=== PATIENT | male | born 1940 | race Caucasian/White ===

== ENCOUNTER 2019-07-26 06:45 | Inpatient (IN) | payer MEDICARE, OTHER ==
[2019-07-26] MEDS ORDERED: Aplisol ID ONE (16:00)
[2019-07-26] MEDS: ELIQUIS 2.5 MG TABLET PO SCH (21:45)
[2019-07-26] MEDS: Colace 100 MG PO SCH (21:45)
[2019-07-26] MEDS: Vibramycin 100 MG PO SCH (21:45)
[2019-07-26] MEDS: Zocor 10MG PO SCH (21:46)
[2019-07-27 05:22] LABS: Hematocrit 33.5 % (42-50); Hemoglobin 10.6 gm/dl (12.5-18.0); Mean Cell Volume 100.6 fl (78-100); Mean Corpuscular Hemoglobin 31.8 pg (26-32); Mean Corpuscular Hgb Concent. 31.6 g/dl (32-36); Mean Platelet Volume 11.8 fl (7.5-11.0); Platelet Count 189 K/mm3 (150-450); Red Blood Count 3.33 M/mm3 (4.1-5.6); Red Cell Distribution Width 14.3 % (11.5-14.0); White Blood Count 5.9 K/mm3 (4.0-10.5)
[2019-07-27 05:23] LABS: ALBUMIN 3.2 g/dL (3.5-5.0); ALKALINE PHOSPHATASE 162 U/L (38-126); ANION GAP 8.6 MEQ/L (5-15); BLOOD UREA NITROGEN 19 mg/dL (9-20); CHLORIDE 99 mmol/L (98-107); Calcium 9.6 mg/dL (8.4-10.2); Carbon Dioxide 35 mmol/L (22-30); Creatinine 1 0.65 mg/dL (0.66-1.25); Glucose 109 mg/dL (74-106); Potassium 4.8 mmol/L (3.5-5.1); SGOT/AST 33 U/L (17-59); SGPT/ALT 33 U/L (0-50); SODIUM 138 mmol/L (137-145); Total Protein 6.8 g/dL (6.3-8.2)
[2019-07-27] MEDS ORDERED: NON-FORMULARY ITEM (Losartan Potassium [Losartan Potassium] 25 MG) PO SCH (10:00)
[2019-07-27] MEDS ORDERED: NON-FORMULARY ITEM (Cholecalciferol (Vitamin D3) [Vitamin D3] 2,000 UNIT) PO SCH (10:00)
[2019-07-27] MEDS ORDERED: POTASSIUM CHLORIDE 10 MEQ PO SCH (10:00)
[2019-07-27] MEDS: Vibramycin 100 MG PO SCH ×2 (10:01→20:44)
[2019-07-27] MEDS: LASIX 20 MG PO SCH (10:01)
[2019-07-27] MEDS: Klor Con 10 MEQ PO SCH (10:01)
[2019-07-27] MEDS: Colace 100 MG PO SCH ×2 (10:01→20:44)
[2019-07-27] MEDS: VITAMIN D PO SCH (10:01)
[2019-07-27] MEDS: ELIQUIS 2.5 MG TABLET PO SCH ×2 (10:01→20:44)
[2019-07-27] MEDS: Cozaar 50 MG PO SCH (10:01)
--- NOTE | 2019-07-27 17:31 | PCM.HP ---
History of Present Illness - Chief Complaint Chief Complaint: DECONDITIONING R/T FALL, RHABDOMYOLYSIS History of Present Illness: is a 79 year old male pt of Dr. Jaimes with osteomyelitis of the spine, HTN , CAD (with CABG), afib, constipation, and low Vitamin D who was recently discharged from [facility] for a 6 day acute care stay and admitted at [facility] for a swing bed stay/rehab. He had fallen at home (denies LOC) and laid on the floor for about 14 hours; was treated for rhabdomyolysis. Pt's only current complaint is back pain, which is chronic since his infection began. He is on doxycycline BID, he states Dr. Jaimes told him he may be on this for life. - Review of Systems Cardiac: Edema (LLE edema, chronic) Musculoskeletal: Back Pain, Fall, Injury, Joint Pain (R shoulder since the fall ; had surgery 2010. Also had L knee surgery 2010.) Medications & Allergies Home Medications: Home Medication List Doxycycline Hyclate 100 mg PO BID 06/21/14 [History Confirmed 07/26/19] Potassium Chloride [Klor-Con M20] 10 meq PO DAILY 06/21/14 [History Confirmed ] Simvastatin 10 mg [Zocor 10MG] 10 mg PO QPM 05/09/19 [History Confirmed ] Apixaban [Eliquis] 5 mg PO BID 07/26/19 [History Confirmed 07/26/19] Cholecalciferol (Vitamin D3) [Vitamin D3] 2,000 unit PO DAILY 07/26/19 [History Confirmed 07/26/19] Docusate Sodium [Colace] 100 mg PO BID 07/26/19 [History Confirmed 07/26/19] Furosemide 20 mg [Lasix 20 mg] 20 mg PO DAILY 07/26/19 [History Confirmed 07/26/19] Losartan Potassium 25 mg PO DAILY 07/26/19 [History Confirmed 07/26/19] Allergies/Adverse Reactions: Allergies Allergy/AdvReac Type Severity Reaction Status Date / Time lisinopril Allergy Mild Verified 05/09/19 09:10 rosuvastatin [From Crestor] Allergy Mild Verified 05/09/19 09:10 - Past Medical History Past Medical History: Yes Neurological History: No Pertinent History ENT History: No Pertinent History Cardiac History: Arrhythmia, Coronary Artery Disease, High Cholesterol, Hypertension Respiratory History: No Pertinent History Endocrine Medical History: No Pertinent History Musculoskelatal History: Arthritis GI Medical History: GERD History: No Pertinent History Pyscho-Social History: No Pertinent History Male Reproductive Disorders: No Pertinent History Comment: foot ulcers to both feet - Past Surgical History Past Surgical History: Yes Neuro Surgical History: No Pertinent History Cardiac History: CABG Respiratory Surgery: No Pertinent History GI Surgical History: No Pertinent History Genitourinary Surgical Hx: No Pertinent History Musculskeletal Surgical Hx: Orthopedic Surgery, Joint Replacement Male Surgical History: No Pertinent History Other Surgical History: LEFT FOOT, LEFT KNEE, LEFT TOE AMPUTATION, LEFT ROTATOR CUF, open heart 2000--quadruple bypass, bilateral knee replace, right shoulder replace that didn't take, bilateral feet - Social History Smoking Status: Never smoker Exposure to second hand smoke: No Alcohol: None Drug Use: none - Physical Exam Vital Signs: Vital Signs - 24 hr Temp Pulse Resp BP Pulse Ox 07/27/19 07:33 140/58 07/27/19 07:08 98 F 66 20 195/86 94 L 07/26/19 19:58 99 F 71 20 171/76 95 General Appearance: no apparent distress, alert (eating supper while in bed) Neurologic Exam: oriented x 3, cooperative Eye Exam: eyes nml inspection Ears, Nose, Throat Exam: moist mucous membranes Neck Exam: normal inspection Respiratory Exam: normal breath sounds, lungs clear, No crackles/rales, No rhonchi, No wheezing Cardiovascular Exam: regular rate/rhythm, normal heart sounds, No murmur Gastrointestinal/Abdomen Exam: soft, normal bowel sounds, No tenderness, No distention, No mass, No guarding, No rebound Extremity Exam: No pedal edema, No swelling Skin Exam: normal color, warm, dry, No rash Wound Assessment: Skin/Wound Assessment Wound/Incision Assessment Start: 07/26/19 20: 27 Text: Status: Active Freq: Q6H Protocol: Document 07/27/19 04:00 BB (Rec: 07/27/19 05:58 BB [id number]) Wound/Incision Assessment Left Foot Wound Assessment Shift Assessment Wound Type Pt is unsure of cause of wound Wound Stage Non Pressure Wound Wound Bed Greatest Portion Red (Granulation) Surrounding Tissue [place] Wound Photo Photo Taken No Results - Labs Lab/Micro Results: Lab Results-Last 24 Hours 07/27/19 07/27/19 07/27/19 Range/Units 04:28 04:28 04:28 WBC 5.9 (4.0-10.5) K/mm3 RBC 3.33 L (4.1-5.6) M/mm3 Hgb 10.6 L (12.5-18.0) gm/dl Hct 33.5 L (42-50) % MCV 100.6 H (78-100) fl MCH 31.8 (26-32) pg MCHC 31.6 L (32-36) g/dl RDW 14.3 H (11.5-14.0) % Plt Count 189 (150-450) K/mm3 MPV 11.8 H (7.5-11.0) fl Sodium 138 (137-145) mmol/L Potassium 4.8 (3.5-5.1) mmol/L Chloride 99 (98-107) mmol/L Carbon Dioxide 35 H (22-30) mmol/L Anion Gap 8.6 (5-15) MEQ/L BUN 19 (9-20) mg/dL Creatinine 0.65 L (0.66-1.25) mg/dL Estimated GFR > 60.0 ML/MIN Glucose 109 H (74-106) mg/dL Calcium 9.6 (8.4-10.2) mg/dL Total Bilirubin 0.70 (0.2-1.3) mg/dL AST 33 (17-59) U/L ALT 33 (0-50) U/L Alkaline Phosphatase 162 H (38-126) U/L Serum Total Protein 6.8 (6.3-8.2) g/dL Albumin 3.2 L (3.5-5.0) g/dL Prealbumin 12.97 L (17.6-36.0) mg/dL Assessment/Plan (1) Generalized weakness Current Visit: No Status: Acute Assessment & Plan: Here for PT. Code(s): R53.1 - WEAKNESS (2) Physical deconditioning Current Visit: No Status: Acute Code(s): R53.81 - OTHER MALAISE (3) Atrial fibrillation Current Visit: No Status: Chronic Qualifiers: Atrial fibrillation type: unspecified Qualified Code(s): I48.91 - Unspecified atrial fibrillation Code(s): I48.91 - UNSPECIFIED ATRIAL FIBRILLATION (4) Back pain Current Visit: No Status: Chronic Qualifiers: Back pain location: back pain in unspecified location Chronicity: chronic Back pain laterality: midline Qualified Code(s): M54.9 - Dorsalgia, unspecified; G89.29 - Other chronic pain Code(s): M54.9 - DORSALGIA, UNSPECIFIED
[2019-07-27] MEDS: Zocor 10MG PO SCH (20:44)
[2019-07-27] MEDS: NORCO 5/325 MG PO PRN (20:44)
[2019-07-28] MEDS: TYLENOL 325 MG PO PRN ×2 (01:26→08:05)
[2019-07-28] MEDS: LASIX 20 MG PO SCH (08:05)
[2019-07-28] MEDS: VITAMIN D PO SCH (08:05)
[2019-07-28] MEDS: Klor Con 10 MEQ PO SCH (08:05)
[2019-07-28] MEDS: Vibramycin 100 MG PO SCH ×2 (08:05→22:46)
[2019-07-28] MEDS: Colace 100 MG PO SCH ×2 (08:05→22:46)
[2019-07-28] MEDS: ELIQUIS 2.5 MG TABLET PO SCH ×2 (08:07→22:00)
[2019-07-28] MEDS: Cozaar 50 MG PO SCH (08:07)
[2019-07-28] MEDS: Zocor 10MG PO SCH (22:46)
[2019-07-28] MEDS: NORCO 5/325 MG PO PRN (22:50)
[2019-07-29] MEDS: Klor Con 10 MEQ PO SCH (07:58)
[2019-07-29] MEDS: Vibramycin 100 MG PO SCH ×2 (07:58→21:15)
[2019-07-29] MEDS: LASIX 20 MG PO SCH (07:58)
[2019-07-29] MEDS: Colace 100 MG PO SCH ×2 (07:58→21:14)
[2019-07-29] MEDS: Cozaar 50 MG PO SCH (07:58)
[2019-07-29] MEDS: ELIQUIS 2.5 MG TABLET PO SCH ×2 (07:58→21:14)
[2019-07-29] MEDS: VITAMIN D PO SCH (07:59)
[2019-07-29] MEDS: NORCO 5/325 MG PO PRN ×2 (08:01→21:15)
[2019-07-29] MEDS: Zocor 10MG PO SCH (21:16)
[2019-07-30] MEDS: Colace 100 MG PO SCH ×2 (09:20→21:00)
[2019-07-30] MEDS: LASIX 20 MG PO SCH (09:21)
[2019-07-30] MEDS: Klor Con 10 MEQ PO SCH (09:21)
[2019-07-30] MEDS: Cozaar 50 MG PO SCH (09:21)
[2019-07-30] MEDS: ELIQUIS 2.5 MG TABLET PO SCH ×2 (09:21→21:00)
[2019-07-30] MEDS: VITAMIN D PO SCH (09:21)
[2019-07-30] MEDS: Vibramycin 100 MG PO SCH ×2 (09:22→21:00)
[2019-07-30] MEDS: TYLENOL 325 MG PO PRN ×2 (09:22→21:00)
--- NOTE | 2019-07-30 17:38 | PCM.NOTE ---
Date and Time: 07/30/19 556 Subjective Assessment: Patient has no concerns. 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 His appetite has been good. He has had trouble calling out but just got his cell phone recharged. - Review of Systems Constitutional: Fatigue Eyes: No Symptoms Ears, Nose, & Throat: No Symptoms Respiratory: No Symptoms Cardiac: No Symptoms Abdominal/Gastrointestinal: No Symptoms Genitourinary Symptoms: No Symptoms Objective Exam General Appearance: no apparent distress, alert Neurologic Exam: alert, cooperative Skin Exam: normal color, warm, dry, No rash Wound Assessment: Skin/Wound Assessment Wound/Incision Assessment Start: 07/26/19 20: 27 Text: Status: Active Freq: Q6H Protocol: Document 07/30/19 16:00 [facility] (Rec: 07/30/19 16:13 [facility] [id number]) Wound/Incision Assessment Right Foot Wound Assessment Shift Assessment Drainage Amount None Primary Dressing Gauze Roll/Wrap Comment dressing cdi, treated by PT today Left Foot Wound Assessment Shift Assessment Drainage Amount None Primary Dressing Gauze Roll/Wrap Comment dressing cdi Wound Photo Photo Taken No Respiratory Exam: normal breath sounds, No crackles/rales, No rhonchi, No wheezing Cardiovascular Exam: regular rate/rhythm, normal heart sounds, No murmur, No friction rub, No gallop Gastrointestinal/Abdomen Exam: soft, normal bowel sounds, No tenderness, No distention, No mass OBJECTIVE DATA Vital Signs: Vital Signs - 24 hr Temp Pulse Resp BP Pulse Ox 07/30/19 08:00 98.2 F 53 L 20 167/74 93 L 07/29/19 20:00 98.0 F 80 18 118/69 94 L Pain Assessment - Last Documented Pain Intensity 4 Pain Scale Used 0-10 Pain Scale Intake and Output: Intake & Output 07/28/19 07/29/19 07/30/19 07/31/19 06:59 06:59 06:59 06:59 Intake Total 1700 1240 1920 880 Output Total 475 750 200 250 Balance 6947 965 6569 630 Weight 94.4 kg Assessment/Plan (1) Generalized weakness Current Visit: No Status: Acute Assessment & Plan: PT/OT ordered. Code(s): R53.1 - WEAKNESS (2) Physical deconditioning Current Visit: No Status: Acute Code(s): R53.81 - OTHER MALAISE (3) Atrial fibrillation Current Visit: No Status: Chronic Qualifiers: Atrial fibrillation type: unspecified Qualified Code(s): I48.91 - Unspecified atrial fibrillation Assessment & Plan: On anticoagulation; rate controlled. Code(s): I48.91 - UNSPECIFIED ATRIAL FIBRILLATION (4) Chronic osteomyelitis Current Visit: Yes Status: Acute Assessment & Plan: On doxycycline chronically. Code(s): M86.60 - OTHER CHRONIC OSTEOMYELITIS, UNSPECIFIED SITE
[2019-07-30] MEDS: Zocor 10MG PO SCH (21:00)
[2019-07-31] MEDS: VITAMIN D PO SCH (09:37)
[2019-07-31] MEDS: Colace 100 MG PO SCH ×2 (09:38→21:45)
[2019-07-31] MEDS: Vibramycin 100 MG PO SCH ×2 (09:38→21:45)
[2019-07-31] MEDS: ELIQUIS 2.5 MG TABLET PO SCH ×2 (09:38→21:46)
[2019-07-31] MEDS: Klor Con 10 MEQ PO SCH (09:38)
[2019-07-31] MEDS: LASIX 20 MG PO SCH (09:39)
[2019-07-31] MEDS: Cozaar 50 MG PO SCH (09:39)
[2019-07-31] MEDS: NORCO 5/325 MG PO PRN (21:45)
[2019-07-31] MEDS: Zocor 10MG PO SCH (21:45)
[2019-08-01] MEDS: ELIQUIS 2.5 MG TABLET PO SCH ×2 (09:29→19:57)
[2019-08-01] MEDS: Vibramycin 100 MG PO SCH ×2 (09:29→19:57)
[2019-08-01] MEDS: Colace 100 MG PO SCH ×2 (09:29→19:57)
[2019-08-01] MEDS: VITAMIN D PO SCH (09:29)
[2019-08-01] MEDS: LASIX 20 MG PO SCH ×2 (09:29→13:54)
[2019-08-01] MEDS: TYLENOL 325 MG PO PRN (09:30)
[2019-08-01] MEDS: Klor Con 10 MEQ PO SCH (09:30)
[2019-08-01] MEDS: Cozaar 50 MG PO SCH ×2 (09:30→10:14)
[2019-08-01] MEDS ORDERED: Cozaar 50 MG PO SCH (10:00)
[2019-08-01] MEDS ORDERED: NORCO 5/325 MG PO PRN (15:57)
[2019-08-01] MEDS: Zocor 10MG PO SCH (19:57)
[2019-08-02] MEDS: VITAMIN D PO SCH (08:25)
[2019-08-02] MEDS: ELIQUIS 2.5 MG TABLET PO SCH ×2 (08:26→22:23)
[2019-08-02] MEDS: LASIX 20 MG PO SCH ×2 (08:26→13:06)
[2019-08-02] MEDS: Vibramycin 100 MG PO SCH ×2 (08:26→22:23)
[2019-08-02] MEDS: Colace 100 MG PO SCH ×2 (08:26→22:23)
[2019-08-02] MEDS: Klor Con 10 MEQ PO SCH (08:26)
[2019-08-02] MEDS: Cozaar 50 MG PO SCH (08:28)
[2019-08-02 08:56] LABS: Absolute Neutrophil Ct (ANC) 3.26 (1.4-6.9); BASOPHIL % 0.2 % (0.0-0.4); Basophil (Absolute #) 0.01 (0-0.4); Eosinophil % 0.2 % (0.00-5.0); Eosinophil (Absolute #) 0.01 (0-0.5); Hematocrit 34.1 % (42-50); Hemoglobin 10.6 gm/dl (12.5-18.0); Lymphocyte (Absolute #) 1.15 (1.0-4.6); Lymphocytes % 23.7 % (24.0-44.0); Mean Cell Volume 101.5 fl (78-100); Mean Corpuscular Hemoglobin 31.5 pg (26-32); Mean Corpuscular Hgb Concent. 31.1 g/dl (32-36); Mean Platelet Volume 11.3 fl (7.5-11.0); Monocyte (Absolute #) 0.43 (0.0-1.3); Monocytes % 8.8 % (0.0-12.0); Neutrophil % 67.1 % (36.0-66.0); Platelet Count 206 K/mm3 (150-450); Red Blood Count 3.36 M/mm3 (4.1-5.6); Red Cell Distribution Width 14.7 % (11.5-14.0); White Blood Count 4.9 K/mm3 (4.0-10.5)
[2019-08-02 10:14] LABS: ANION GAP 8.5 MEQ/L (5-15); BLOOD UREA NITROGEN 25 mg/dL (9-20); CHLORIDE 100 mmol/L (98-107); Calcium 9.5 mg/dL (8.4-10.2); Carbon Dioxide 35 mmol/L (22-30); Creatinine 1 0.73 mg/dL (0.66-1.25); Glucose 88 mg/dL (74-106); Potassium 4.8 mmol/L (3.5-5.1); SODIUM 138 mmol/L (137-145)
[2019-08-02] MEDS: Zocor 10MG PO SCH (22:23)
[2019-08-03] MEDS: LASIX 20 MG PO SCH ×2 (08:58→14:14)
[2019-08-03] MEDS: Vibramycin 100 MG PO SCH ×2 (08:58→21:25)
[2019-08-03] MEDS: ELIQUIS 2.5 MG TABLET PO SCH ×2 (08:58→21:25)
[2019-08-03] MEDS: Klor Con 10 MEQ PO SCH (08:59)
[2019-08-03] MEDS: Cozaar 50 MG PO SCH (08:59)
[2019-08-03] MEDS: VITAMIN D PO SCH (08:59)
[2019-08-03] MEDS: Colace 100 MG PO SCH ×2 (08:59→21:25)
[2019-08-03] MEDS ORDERED: ROCEPHIN 1 Gm-D5w 50 ml Bag** 1 G/50 ML IVPB IV SCH (12:15)
[2019-08-03] MEDS ORDERED: PHARMACY DOSING REQUEST MC ONE (17:16)
[2019-08-03] MEDS: Levofloxacin 500 MG Tablet PO SCH (19:07)
[2019-08-03] MEDS: Zocor 10MG PO SCH (21:25)
[2019-08-04] MEDS: LASIX 20 MG PO SCH ×2 (08:13→14:52)
[2019-08-04] MEDS: Cozaar 50 MG PO SCH (10:55)
[2019-08-04] MEDS: Vibramycin 100 MG PO SCH ×2 (10:55→21:06)
[2019-08-04] MEDS: Levofloxacin 500 MG Tablet PO SCH (10:55)
[2019-08-04] MEDS: ELIQUIS 2.5 MG TABLET PO SCH ×2 (10:55→21:06)
[2019-08-04] MEDS: VITAMIN D PO SCH (10:55)
[2019-08-04] MEDS: Klor Con 10 MEQ PO SCH (10:56)
[2019-08-04] MEDS: Colace 100 MG PO SCH ×2 (10:56→21:06)
[2019-08-04] MEDS: Zocor 10MG PO SCH (21:06)
[2019-08-05] MEDS: LASIX 20 MG PO SCH ×2 (07:35→15:43)
[2019-08-05] MEDS: Levofloxacin 500 MG Tablet PO SCH (08:36)
[2019-08-05] MEDS: VITAMIN D PO SCH (08:36)
[2019-08-05] MEDS: Vibramycin 100 MG PO SCH ×2 (08:36→21:15)
[2019-08-05] MEDS: Colace 100 MG PO SCH ×2 (08:36→21:15)
[2019-08-05] MEDS: Klor Con 10 MEQ PO SCH (08:36)
[2019-08-05] MEDS: Cozaar 50 MG PO SCH (08:37)
[2019-08-05] MEDS: ELIQUIS 2.5 MG TABLET PO SCH ×2 (08:37→21:15)
--- NOTE | 2019-08-05 14:08 | PCM.NOTE ---
Date and Time: 08/05/19 1405 Subjective Assessment: Patient reports he feels strong enough to go home and thinks he will be discharged early this week. He sees Dr. Puentes for his chronic wound infection. He has no concerns today. - Review of Systems Constitutional: No Symptoms Respiratory: No Symptoms Cardiac: No Symptoms Abdominal/Gastrointestinal: No Symptoms Genitourinary Symptoms: No Symptoms Musculoskeletal: No Symptoms Objective Exam General Appearance: no apparent distress Neurologic Exam: alert, cooperative Skin Exam: normal color, warm, dry, other (foot wound dressed) Wound Assessment: Skin/Wound Assessment Wound/Incision Assessment Start: 07/26/19 20: 27 Text: Status: Active Freq: Q6H Protocol: Document 08/05/19 10:00 [facility] (Rec: 08/05/19 11:05 [facility] [id number]) Wound/Incision Assessment Right Foot Wound Assessment Shift Assessment Wound Type CHRONIC WOUND Wound Stage Non Pressure Wound Dressing Status Changed Drainage Amount None Drainage Description Purulent Wound Bed Greatest Portion Yellow (Slough) Packing Type Alginate Primary Dressing mepilex lite Secondary Dressing Gauze Roll/Wrap Comment dressing changed d/t old one soiled with drainage Left Foot Wound Assessment Shift Assessment Wound Type CHRONIC WOUND Drainage Amount None Primary Dressing Gauze Roll/Wrap Comment Dressings to chronic wounds CDI. Physical therapy changes dressings. Wound Photo Photo Taken No Respiratory Exam: normal breath sounds, lungs clear, No crackles/rales, No rhonchi, No wheezing Cardiovascular Exam: regular rate/rhythm, normal heart sounds, No murmur, No friction rub, No gallop OBJECTIVE DATA Vital Signs: Vital Signs - 24 hr Temp Pulse Resp BP Pulse Ox 08/05/19 07:03 98.9 F 77 16 151/69 91 L 08/04/19 19:11 98.6 F 66 16 122/56 91 L Pain Assessment - Last Documented Pain Intensity 10 Pain Scale Used 0-10 Pain Scale Intake and Output: Intake & Output 08/03/19 08/04/19 08/05/19 08/06/19 06:59 06:59 06:59 06:59 Intake Total 1490 1860 760 180 Balance 1490 1860 760 180 Weight 94.9 kg 93.4 kg 96.1 kg Assessment/Plan (1) Generalized weakness Current Visit: No Status: Acute Assessment & Plan: Continue PT/OT; plan for discharge home when PT/OT completed. Code(s): R53.1 - WEAKNESS (2) Physical deconditioning Current Visit: No Status: Acute Code(s): R53.81 - OTHER MALAISE (3) Atrial fibrillation Current Visit: No Status: Chronic Qualifiers: Atrial fibrillation type: unspecified Qualified Code(s): I48.91 - Unspecified atrial fibrillation Assessment & Plan: Rate is controlled on Eliquis for anticoagulation. Code(s): I48.91 - UNSPECIFIED ATRIAL FIBRILLATION (4) Chronic osteomyelitis Current Visit: Yes Status: Acute Assessment & Plan: He takes doxycycline daily mcfp. He had a wound culture done as recommended by PT and I added levofloxacin to his regimen for this (see wound culture report in computer). He is on Day 3 of 10 for this. Code(s): M86.60 - OTHER CHRONIC OSTEOMYELITIS, UNSPECIFIED SITE
[2019-08-05] MEDS: Zocor 10MG PO SCH (21:15)
[2019-08-06] MEDS: LASIX 20 MG PO SCH ×2 (07:41→13:33)
[2019-08-06] MEDS: Vibramycin 100 MG PO SCH ×2 (09:57→21:23)
[2019-08-06] MEDS: VITAMIN D PO SCH (09:58)
[2019-08-06] MEDS: Colace 100 MG PO SCH ×2 (09:59→21:23)
[2019-08-06] MEDS: Levofloxacin 500 MG Tablet PO SCH (10:00)
[2019-08-06] MEDS: Klor Con 10 MEQ PO SCH (10:00)
[2019-08-06] MEDS: ELIQUIS 2.5 MG TABLET PO SCH ×2 (10:00→21:23)
[2019-08-06] MEDS: Cozaar 50 MG PO SCH (10:01)
[2019-08-06] MEDS: Zocor 10MG PO SCH (21:23)
[2019-08-07 07:07] VITALS: PULSE 72; O2SAT 92
[2019-08-07 08:59] VITALS: BP 148/84
[2019-08-07] MEDS: Cozaar 50 MG PO SCH (09:55)
[2019-08-07] MEDS: Colace 100 MG PO SCH (09:56)
[2019-08-07] MEDS: Levofloxacin 500 MG Tablet PO SCH (09:56)
[2019-08-07] MEDS: VITAMIN D PO SCH (09:56)
[2019-08-07] MEDS: Vibramycin 100 MG PO SCH (09:56)
[2019-08-07] MEDS: Klor Con 10 MEQ PO SCH (09:56)
[2019-08-07] MEDS: ELIQUIS 2.5 MG TABLET PO SCH (09:56)
[2019-08-07] MEDS: LASIX 20 MG PO SCH (10:04)
--- NOTE | 2019-08-07 10:34 | PCM.DS ---
Discharge Summary Date of Admission: 07/26/19 18:45 Admitting Physician: ROLANDO CHAPARRO Primary Care Provider: SWAPNIL CHAPMAN Allergies Allergies lisinopril Allergy (Mild, Verified 05/09/19 09:10) rosuvastatin [From Crestor] Allergy (Mild, Verified 05/09/19 09:10) Hospital Summary - Hospital Course Hospital Course: patient was admitted with chronic ulcerations of the feet, sees Dr Bull for osteomyelitis, he is doing well and able to ambulate with his walker, will go home with home health and plans to see podiatry tomorrow. - Vitals & Intake/Output Vital Signs: Vital Signs Temperature 98.7 F 08/07/19 07:06 Pulse Rate 72 08/07/19 07:06 Respiratory Rate 18 08/07/19 07:06 Blood Pressure 148/84 08/07/19 08:59 O2 Sat by Pulse Oximetry 92 L 08/07/19 07:06 Intake & Output: Intake & Output 08/04/19 08/05/19 08/06/19 08/07/19 11:59 11:59 11:59 11:59 Intake Total 5333 053 2528 1260 Balance 2218 983 4856 1260 Weight 93.4 kg 96.1 kg 97.9 kg 98.3 kg - Lab Result Diagrams: 08/02/19 08:37 08/02/19 08:37 Micro Results-Entire Visit: Microbiology 08/01/19 15:30 Wound Culture - Final Foot - Right Top Serratia Marcescens - Procedures and Test Procedures and Tests throughout Hospitalization: Therapy Orders & Screens 07/26/19 18:45 PT Eval & Treat ( Order) ROUTINE Reason for Eval:: DECONDITIONING R/T FALL, RHABDOMYOLYSIS CHRONIC WOUNDS Diagnosis: DECONDITIONING R/T FALL, RHABDOMYOLYSIS 07/27/19 18:07 PT Clarification Order ROUTINE Comment: Physician Instructions: Reason For Exam: PT Clarification: PT. TO RX 5X/WK UNTIL TO D/C TO ADDRESS FUNCTIONAL MOBILITY AND GAIT TRAINING, THER EX, BALANCE AND ENDURANCE ACTIVITIES WELL W/C VIA CLEANSING/DEBRIDEMENT, DRESSING MG'T. ALSO WILL EDUCATE PT RE: SAFETY AWARENESS AND HEP ALL TO MAXIMIZE FUNCTIONAL POTENTIAL FOR SAFE RETURN HOME. 07/31/19 09:31 OT Eval and Treat (MD Order) ROUTINE Comment: Consulting Provider: Physician Instructions: Reason For Exam: Diagnosis: DECONDITIONING R/T FALL, RHABDOMYOLYSIS 07/31/19 17:04 OT Clarification Order ROUTINE Comment: Physician Instructions: Reason For Exam: OT Clarification: OT TO TX 5X/WK TO ADDRESS ADL RETRAINING, SAFETY AWARENESS/ EDUCATION, FUNCTIONAL MOBILITY RETRANING AND SAFETY, THERAPUETIC EXERCISES AND ACTIVITIES ALL TO MAXIMIZE HIS OVERALL FUNCTIONAL POTENTIAL SO HE CAN RETURN HOME TO [facility] WITH FAMILY ASSIST. Discharge Exam General Appearance: no apparent distress, alert Neurologic Exam: alert, oriented x 3, cooperative, normal mood/affect, nml cerebellar function, sensation nml, No motor deficits Respiratory Exam: normal breath sounds, lungs clear, No respiratory distress Cardiovascular Exam: regular rate/rhythm, normal heart sounds Gastrointestinal/Abdomen Exam: soft, No tenderness, No mass Extremity Exam: other (large chronic ulcerations to bilateral plantar feet, right appears to involve tendon, areas are clean and dry) Wound Assessment: Skin/Wound Assessment Wound/Incision Assessment Start: 07/26/19 20: 27 Text: Status: Active Freq: Q6H Protocol: Document 08/07/19 04:00 ST (Rec: 08/07/19 04:58 ST [id number]) Wound/Incision Assessment Right Foot Wound Assessment Shift Assessment Wound Type CHRONIC WOUND Wound Stage Non Pressure Wound Dressing Status Changed Drainage Amount None Drainage Description Purulent Packing Type Alginate Primary Dressing mepilex lite Secondary Dressing Gauze Roll/Wrap Comment dressing CDI Left Foot Wound Assessment Shift Assessment Wound Type CHRONIC WOUND Drainage Amount None Primary Dressing Gauze Roll/Wrap Comment Dressings to chronic wounds CDI. Physical therapy changes dressings. Wound Photo Photo Taken No Final Diagnosis/Problem List - Final Discharge Diagnosis/Problem (1) Chronic osteomyelitis Current Visit: Yes Status: Acute Code(s): M86.60 - OTHER CHRONIC OSTEOMYELITIS, UNSPECIFIED SITE (2) Generalized weakness Current Visit: No Status: Acute Code(s): R53.1 - WEAKNESS (3) Physical deconditioning Current Visit: No Status: Acute Code(s): R53.81 - OTHER MALAISE (4) Atrial fibrillation Current Visit: No Status: Chronic Code(s): I48.91 - UNSPECIFIED ATRIAL FIBRILLATION (5) CHF (congestive heart failure) Current Visit: No Status: Chronic Code(s): I50.9 - HEART FAILURE, UNSPECIFIED - Discharge Disposition: Home, Self-Care Condition: Stable Prescriptions: New Levofloxacin [Levofloxacin 500 MG Tablet] 500 mg PO DAILY #5 tablet Continue Potassium Chloride [Klor-Con M20] 10 meq PO DAILY Doxycycline Hyclate 100 mg PO BID Simvastatin 10 mg [Zocor 10MG] 10 mg PO QPM Furosemide 20 mg [Lasix 20 mg] 20 mg PO DAILY Apixaban [Eliquis] 5 mg PO BID Losartan Potassium 25 mg PO DAILY Docusate Sodium [Colace] 100 mg PO BID Cholecalciferol (Vitamin D3) [Vitamin D3] 2,000 unit PO DAILY Additional Instructions: Follow up with in 2-3 weeks keep current appt. Follow up with: SWAPNIL CHAPMAN MD [Primary Care Provider] - 08/08/19 10:45 am BENJAMIN BULL [PODIATRY STAFF] - 08/08/19
== END 2019-08-07 12:30 | disposition home health service (06) | DRG 540 ==
LOC: UNDOADMIN 06:45 → MED SURG 06:45
PROVIDERS: ADMIT Family Medicine; ATTEND Family Medicine
DX: M86.672 Other chronic osteomyelitis, left ankle and foot (principal); M62.82 Rhabdomyolysis; M86.671 Other chronic osteomyelitis, right ankle and foot; I25.10 Atherosclerotic heart disease of native coronary artery without angina pectoris; Z95.1 Presence of aortocoronary bypass graft; I11.0 Hypertensive heart disease with heart failure; I50.9 Heart failure, unspecified; M54.9 Dorsalgia, unspecified; R53.81 Other malaise; I48.91 Unspecified atrial fibrillation; Z79.899 Other long term (current) drug therapy; Z79.01 Long term (current) use of anticoagulants
CPT/HCPCS: 36415; 80048; 80053; 84134; 85025; 85027; 87070; 87077; 87186; 97110-GP; A9270-GY